=== PATIENT | female | born 1970 | race Two or more races ===

== ENCOUNTER 2022-10-03 15:10 | Emergency (ER) | payer OTHER ==
[2022-10-03 15:24] VITALS: BP 125/88; PULSE 79; RESP 18; TEMP 98.4; BMI 57.2
[2022-10-03] MEDS ORDERED: KETOROLAC TROMETHAMINE 30 MG/1 ML VIAL IM ONE (16:47)
[2022-10-03] MEDS ORDERED: CYCLOBENZAPRINE HCL 10 MG TABLET (FP) PO ONE (16:47)
[2022-10-03] MEDS ORDERED: KETOROLAC TROMETHAMINE 30 MG/1 ML VIAL ONE (17:04)
[2022-10-03] MEDS ORDERED: CYCLOBENZAPRINE HCL 10 MG TABLET (FP) ONE (17:04)
== END 2022-10-03 17:59 | disposition home or self-care (01) ==
LOC: JERFT 15:10 → JER 15:10 → JERFT 17:59
PROC: 3E0233Z Introduction of Anti-inflammatory into Muscle, Percutaneous Approach (ICD-10-PCS; principal; 2022-10-03)
DX: M25.511 Pain in right shoulder (principal); M79.601 Pain in right arm
CPT/HCPCS: 73030-TC-RT-FY; 73060-TC-RT-FY; 99284-25

== ENCOUNTER 2022-11-27 11:02 | Emergency (ER) | payer OTHER ==
[2022-11-27 11:10] VITALS: BP 121/81; PULSE 72; RESP 17; TEMP 98.5; BMI 24.7
[2022-11-27] MEDS ORDERED: KETOROLAC TROMETHAMINE 30 MG/1 ML VIAL IM ONE (11:54)
[2022-11-27] MEDS ORDERED: KETOROLAC TROMETHAMINE 30 MG/1 ML VIAL ONE (12:00)
== END 2022-11-27 12:48 | disposition home or self-care (01) ==
LOC: JERFT 11:02
PROC: 3E023GC Introduction of Other Therapeutic Substance into Muscle, Percutaneous Approach (ICD-10-PCS; principal; 2022-11-27)
DX: M79.601 Pain in right arm (principal)
CPT/HCPCS: 73060-TC-RT-FY; 99284-25

== ENCOUNTER 2023-08-18 12:37 | Emergency (ER) | payer OTHER ==
[2023-08-18 12:44] VITALS: BP 114/75; PULSE 73; RESP 18; TEMP 98.4; BMI 26.6
== END 2023-08-18 15:12 | disposition left against medical advice (07) ==
LOC: JER 12:37 → JERFT 12:37
DX: H57.89 Other specified disorders of eye and adnexa (principal)
CPT/HCPCS: 99281-25

== ENCOUNTER 2023-08-22 04:47 | Day surgery (SDC) | payer OTHER ==
[2023-08-20 12:06] VITALS: BMI 26.6
[2023-08-22 13:30] VITALS: TEMP 97
[2023-08-22 14:06] VITALS: BP 107/65; PULSE 61; RESP 15
== END 2023-08-22 14:06 | disposition home or self-care (01) ==
LOC: JASU-ENDO 04:47
PROVIDERS: ATTEND Internal Medicine Gastroenterology
PROC: 0DJD8ZZ Inspection of Lower Intestinal Tract, Via Natural or Artificial Opening Endoscopic (ICD-10-PCS; principal; 2023-08-22 12:45)
DX: Z12.11 Encounter for screening for malignant neoplasm of colon (principal)

== ENCOUNTER 2025-03-07 03:38 | Emergency (ER) | payer OTHER ==
[2025-03-07 03:54] VITALS: BP 140/95; PULSE 78; RESP 18; TEMP 98.4; BMI 26.9
[2025-03-07] MEDS ORDERED: MECLIZINE HCL 25 MG TABLET (FP) ONE (05:04)
[2025-03-07] MEDS: SODIUM CHLORIDE 0.9% 500 ML INFUS.BAG IV ONE (05:08)
[2025-03-07] MEDS: MECLIZINE HCL 25 MG TABLET (FP) PO ONE (05:08)
[2025-03-07 06:16] LABS: ABSOLUTE IMMATURE GRANULOCYTES 0.04 x10^3/uL (0.0-0.031); BASOPHILS # 0.06 x10^3/uL (0.01-0.08); EOSINOPHIL % 0.6 % (0.7-5.8); EOSINOPHILS # 0.06 x10^3/uL (0.04-0.36); MCHC 32.8 g/dl (32.2-35.5); MEAN CELL VOLUME 80.1 fl (79.4-94.8); MEAN PLT VOLUME 12.3 fl (9.4-12.3); MONOCYTE # 0.44 x10^3/uL (0.24-0.86); MONOCYTE % 4.5 % (4.7-12.5); RDW 14.6 % (12.3-16.6)
[2025-03-07 06:27] LABS: CO2 28.0 mmol/L (21-32); GLUCOSE,RANDOM 107.0 mg/dL (74-106)
[2025-03-07 06:30] LABS: CREATININE 0.9 mg/dL (0.55-1.3); SGPT/ALT 32.0 U/L (13-61)
[2025-03-07 06:31] LABS: SGOT/AST 28.0 U/L (15-37)
[2025-03-07 06:32] LABS: TOT PROT 8.2 g/dl (6.4-8.2)
[2025-03-07 06:34] LABS: ALK PHOS 96.0 U/L (45-117)
== END 2025-03-07 06:55 | disposition home or self-care (01) ==
LOC: JER 03:38
DX: R42 Dizziness and giddiness (principal); R11.2 Nausea with vomiting, unspecified; R51.9 Headache, unspecified
CPT/HCPCS: 36415; 70450-TC; 80053; 83735; 85025; 99284-25